=== PATIENT | male | born 1995 | race Caucasian/White ===

== ENCOUNTER 2017-09-18 05:22 | Day surgery (SDC) | payer OTHER ==
[2017-09-18] VITALS (9 sets, daily range): BP systolic 122–165; BP diastolic 72–88
[~2017-09-18] VITALS: Ht 165.1 cm; Wt 65.8 kg
[2017-09-18] MEDS ORDERED: fentaNYL 100 mcg/2 mL IV ONE (05:23)
[2017-09-18] MEDS ORDERED: LR 1000ml ONE (05:23)
[2017-09-18] MEDS ORDERED: Propofol 200mg/20ml IV ONE (05:23)
[2017-09-18] MEDS ORDERED: Ketorolac 30mg Inj ONE (05:23)
[2017-09-18] MEDS ORDERED: Midazolam 2mg/2ml Inj ONE (05:23)
[2017-09-18] MEDS ORDERED: NKM (05:49)
[2017-09-18] MEDS ORDERED: celeBREX 200mg Cap **SURGERY PATIENTS ONLY ORAL ONE ×2 (06:11→08:00)
[2017-09-18] MEDS ORDERED: Bupivacaine 0.5% Inj 30 ml vial INJ ONE (06:46)
[2017-09-18] MEDS ORDERED: Bacitracin 50000 Units Vial ONE (06:46)
[2017-09-18] MEDS ORDERED: LR 1000ml 1,000 ML IVLG SCH (07:14)
--- NOTE | 2017-09-18 07:14 | Anethesia Preoperative Eval ---
Anesthesia Pre-op PMH/ROS General Date of Evaluation: Sep 18, 2017 Time of Evaluation: 07:11 Anesthesiologist: Jojo ASA Score: ASA 2 Mallampati Score Class I : Soft palate, uvula, fauces, pillars visible Class II: Soft palate, uvula, fauces visible Class III: Soft palate, base of uvula visible Class IV: Only hard plate visible Mallampati Classification: Class II Surgeon: Kevin Diagnosis: Retained hardwear L elbow Surgical Procedure: Hardwear removal L elbow Anesthesia History: none Family History: no anesthesia problems Allergies: Coded Allergies: CODEINE (Verified Allergy, Unknown, 09/17/17) Medications: see eMAR Past Medical History Cardiovascular: Denies: HTN, CAD, [place], valve dz, arrhythmia, other Pulmonary: Denies: asthma, COPD, NONA, other Gastrointestinal/Genitourinary: Reports: GERD, Denies: CRI, ESRD, other Neurologic/Psychiatric: Denies: dementia, CVA, depression/anxiety, TIA, other Endocrine: Denies: DM, hypothyroidism, steroids, other HEENT: Denies: cataract (L), cataract (R), glaucoma, [place] (L), [place] (R), other Hematology/Immune: Denies: anemia, DVT, bleeding disorder, other Musculoskeletal/Integumentary: Denies: OA, RA, DJD, DDD, edema, other PMH Narrative: as above PSxH Narrative: ORIF L elbow Fx Anesthesia Pre-op Phys. Exam Physician Exam Last Vital Signs Date Time Temp Pulse Resp B/P (MAP) Pulse Ox O2 Delivery O2 Flow Rate FiO2 09/18/17 05:56 97.5 78 20 135/80 98 Room Air Constitutional: NAD Neurologic: CN 2-12 intact Cardiovascular: RRR, no M/R/G Respiratory: CTA Airway Exam Mallampati Score: Class II MO: full Neck: flexible ROM: limited Teeth: intact Dentures: no upper, no lower Anesthesia Pre-op A/P Risk Assessment & Plan Assessment: ASA 2 Plan: GA with LMA Status Change Before Surgery: No Pre-Antibiotics Drug: Ancef 1gr. Given Within 1 Hr of Incision: Yes Time Given: 07:32 MARYBEL LIMON M.D. Sep 18, 2017 07:14
[2017-09-18] MEDS ORDERED: DiphenhydrAMINE 50mg/ml Inj IVP PRN (07:15)
[2017-09-18] MEDS ORDERED: Ketorolac 30mg Inj IV PRN (07:15)
[2017-09-18] MEDS ORDERED: Hydromorphone 0.5mg/0.5ml inj IVP PRN (07:15)
[2017-09-18] MEDS ORDERED: Meperidine 50mg/ml Inj(FOR RIGORS ONLY) IV PRN ×2 (07:15)
[2017-09-18] MEDS ORDERED: D5 1/2NS 1,000 ML IV SCH (07:30)
[2017-09-18] MEDS ORDERED: Tylenol #3 tab (300mg/30mg) ORAL PRN (07:30)
[2017-09-18] MEDS ORDERED: Norco 5mg/325mg tab ORAL PRN (07:30)
[2017-09-18] MEDS ORDERED: HYDROmorphone 1mg/ml Carpuject SUBQ PRN (07:30)
--- NOTE | 2017-09-18 07:31 | Pre-Procedure Note/Attestation ---
Pre-Procedure Note/Attestation Complete Prior to Procedure Planned Procedure: left Procedure Narrative: removal of hardware elbow Indications for Procedure Pre-Operative Diagnosis: left painful hardware elbow Attestation I attest that I discussed the nature of the procedure; its benefits; risks and complications; and alternatives (and the risks and benefits of such alternatives ), prior to the procedure, with the patient (or the patient's legal visitor services representative). I attest that, if there was a reasonable possibility of needing a blood transfusion, the patient (or the patient's legal visitor services representative) was given the [facility] standardized written summary, pursuant to the [place] Blood Safety Act ([place] Health and Safety Code # 1645, as amended). I attest that I re-evaluated the patient just prior to the surgery and that there has been no change in the patient's H&P, except as documented below: NAA BWOLES Sep 18, 2017 07:31
--- NOTE | 2017-09-18 07:32 | Operative Note - PDOC ---
Operative Note Operative Note Pre-op Diagnosis: left painful hardware elbow Procedure: removal of hardware elbow Post-op Diagnosis: same as pre-op plus Operative Findings: consistent w/pre-op dx studies Anesthesia: MAC Specimen: none Complications: none Condition: stable Estimated Blood Loss: none Implant(s) used?: NAA Mccain Sep 18, 2017 07:31
[2017-09-18] MEDS ORDERED: ceFAZolin 1 GM premix IV ONE (08:00)
[2017-09-18] MEDS ORDERED: oxyCONTIN 20mg tab ORAL ONE (08:00)
--- NOTE | 2017-09-18 09:35 | Immediate Post-Op Evaluation ---
Immediate Post-Op Evalulation Immediate Post-Op Evalulation Procedure: Removal hardwear L elbow Date of Evaluation: Sep 18, 2017 Time of Evaluation: 08:40 IV Fluids: 1200 Blood Products: none Estimated Blood Loss: min Urinary Output: none Blood Pressure Systolic: 116 Blood Pressure Diastolic: 72 Pulse Rate: 58 Respiratory Rate: 20 O2 Sat by Pulse Oximetry: 99 Temperature (Fahrenheit): 97.5 Pain Score (1-10): 2 Nausea: No Vomiting: No Complications none Patient Status: reacts, patent, none Hydration Status: adequate MARYBEL LIMON M.D. Sep 18, 2017 09:35
--- NOTE | 2017-09-18 11:40 | 48 Hour Post Anesthesia Eval ---
Post Anesthesia Evaluation Procedure: Removal hardwear L elbow Date of Evaluation: Sep 18, 2017 Time of Evaluation: 11:39 Blood Pressure Systolic: 122 0: 76 Pulse Rate: 58 Respiratory Rate: 20 Temperature (Fahrenheit): 97.6 O2 Sat by Pulse Oximetry: 98 Airway: patent Nausea: No Vomiting: No Pain Intensity: 1 Hydration Status: adequate Cardiopulmonary Status: stable Mental Status/LOC: patient returned to baseline Follow-up Care/Observations: n/a Post-Anesthesia Complications: none Follow-up care needed: ready to discharge MARYBEL LIMON M.D. Sep 18, 2017 11:40
--- NOTE | 2017-09-21 07:45 | Operative Note - Dictated ---
DATE OF OPERATION: 09/18/2017 PREOPERATIVE DIAGNOSES: 1. Status post left olecranon fracture. 2. Left elbow painful hardware. POSTOPERATIVE DIAGNOSES: 1. Status post left olecranon fracture. 2. Left elbow painful hardware. PROCEDURE: 1. Removal of left elbow hardware, one plate and eight screws. 2. Complex closure, left elbow incision. SURGEON: Bola Brown M.D. ANESTHESIA: MAC. INDICATION FOR PROCEDURE: The patient is a pleasant gentleman who sustained a fall with olecranon fracture, went to ER, underwent open reduction and internal fixation. He subsequently had pain along the hardware and therefore indicated to remove the hardware. Risks, limitations, expectations, and complications of the procedure were discussed in detail. All questions were addressed. DESCRIPTION OF PROCEDURE: An informed consent was obtained. The patient was brought to the operating room and was placed supine under monitored anesthesia control. Tourniquet was applied on the left proximal arm. Left arm was prepped and draped in a sterile manner. Time-out was performed. The skin was marked out at the previous skin incision. It was scar tissue was exciszedto healthy skin tissue edges. The plate was identified. The screws were all removed. One of the more proximal screw tips was somewhat split. The plate was used to try to remove the locked screw; however, the screw head broke. Subsequently, a plier was then used to manually remove the screw. Once that was done, the wound was copiously irrigated. Complex closure of the skin was then performed using a combination of 2-0 Vicryl, 3-0 Monocryl, and Dermabond dressing. A compression dressing was applied. The patient was awoken and taken to recovery room with stable vital signs. ESTIMATED BLOOD LOSS: None. COMPLICATIONS: None. SPECIMENS: None. EXPLANTS: Include one plate and eight screws. Bola Brown M.D. DR: KRISTI JOB#: [id number] CC: [email or web address]
== END 2017-09-18 10:40 | disposition home or self-care (01) ==
LOC: SDS 05:22
DX: T85.848A Pain due to other internal prosthetic devices, implants and grafts, initial encounter (principal); S52.022G Displaced fracture of olecranon process without intraarticular extension of left ulna, subsequent encounter for closed fracture with delayed healing; X58.XXXA Exposure to other specified factors, initial encounter; Y93.9 Activity, unspecified; Y92.9 Unspecified place or not applicable; X58.XXXD Exposure to other specified factors, subsequent encounter; K21.9 Gastro-esophageal reflux disease without esophagitis; Z88.6 Allergy status to analgesic agent
CPT/HCPCS: 20680; J0690; J1885; J2175; J2250; J2704; J3010; J3490; J7120; 94003; 94150